=== PATIENT | female | born 1985 | race Caucasian/White ===

== ENCOUNTER 2017-12-12 06:04 | Emergency (ER) | payer OTHER ==
[~2017-12-12] VITALS: Ht 165.1 cm; Wt 121.4 kg
[~2017-12-12 06:04] MED LIST: IBUPROFEN200 M1 PO; NAPROSYN500 MG PO; NORCO 7.5/321 TABLET PO; ZOFRAN ODT4 MG PO
[2017-12-12 09:04] VITALS: BP 128/79
== END 2017-12-12 09:03 | disposition home or self-care (01) ==
LOC: EME 06:04
DX: M79.662 Pain in left lower leg (principal); F17.200 Nicotine dependence, unspecified, uncomplicated; Z90.49 Acquired absence of other specified parts of digestive tract; Z91.040 Latex allergy status
CPT/HCPCS: 93971; 99281; 99284